=== PATIENT | male | born 1950 | race Caucasian/White ===

== ENCOUNTER → 2020-09-26 | Outpatient (CLI) | payer MEDICARE ==
[~2020-09-26] MED LIST: ASPIRIN E.C. 8181 MG PO; GALZIN25 MG PO; LASIX 20MG TABL20 MG PO; LIPITOR20 MG PO; MAGNESIUM ELEME30 MG PO; MEDROL 4MG DOSPA4 MG PO; MERIBIN5 MG PO; NORCO 325 MG-101 TAB PO; OMEGA-3 1000 MG1 CAP PO; PRESERVISION1 SGL PO; VITAMIN B COMPL1 SGL PO; VITAMIN D 400400 IU PO; VITAMIN D31000 I1 PO; VITAMINC1000TA PO; ZEBETA 5MG5 MG PO
== END ==
LOC: COL.RAD 12:53
DX: I25.10 Atherosclerotic heart disease of native coronary artery without angina pectoris (principal)
CPT/HCPCS: Q9967

== ENCOUNTER 2020-09-29 10:54 | Observation (INO) | payer MEDICARE ==
[2020-09-29] VITALS (13 sets, daily range): BP systolic 115–171; BP diastolic 72–98; PULSE 54–78; TEMP 97.7–98
[~2020-09-29] VITALS: Ht 185.4 cm; Wt 122.7 kg
[2020-09-29 11:50] LABS: BASO # 0.1 (0.0-0.2); BASO % 0.9 % (0.0-2.0); EOS # 0.1 (0.0-0.7); EOS % 1.9 % (0-4.0); GRAN # 4.1 (1.4-6.5); GRAN % 58.3 % (42.2-75.2); HEMATOCRIT 45.6 % (42.0-52.0); HEMOGLOBIN 15.7 g/dl (13.5-18.0); LYMPH # 2.1 (1.2-3.4); MEAN CELL VOLUME 94 fl (80.0-100.0); MEAN CORPUSCULAR HEMOGLOBIN 32 pg (27.0-31.0); MEAN CORPUSCULAR HGB CONC 34 g/dl (33.0-37.0); MONO # 0.6 (0.1-0.6); MONO % 8.6 % (1.7-9.3); PLATELET COUNT 287 K/mm3 (130-400); RED BLOOD COUNT 4.87 M/mm3 (4.20-5.60); REDCELL DISTRIBUTION WIDTH-CV 11.9 % (11.5-14.5)
[2020-09-29 11:58] LABS: ALANINE AMINOTRANSFERASE 24 U/L (4-49); ALBUMIN 4.8 gm/dL (3.5-5.0); ALKALINE PHOSPHATASE 65 U/L (50-136); ANION GAP 11 mmol/L (7-16); AST,SGOT 29 U/L (15-37); BILIRUBIN,TOTAL 0.6 mg/dL (0.0-1.0); BLOOD UREA NITROGEN 15 mg/dL (9-20); CALCIUM 9.6 mg/dL (8.4-10.2); CARBON DIOXIDE 24 mmol/L (22-30); CHLORIDE 104 mmol/L (98-107); CREATININE, serum 0.85 (0.66-1.25); GLUCOSE 125 mg/dL (74-106); POTASSIUM 4.4 mmol/L (3.4-5.0); SODIUM 138 mmol/L (137-145); TOTAL PROTEIN 7.7 gm/dL (6.4-8.2)
[2020-09-29 12:12] LABS: TROPONIN-I < 0.012 ng/mL (0.000-0.035)
[2020-09-29] MEDS ORDERED: ZEBETA 5MG5 MG PO (14:04)
--- NOTE | 2020-09-29 14:45 | NUR ---
Pt arrived to medical unit room 317 at this time. Sitting in room on bench w/friend at bedside. Oriented pt to room and completed admission assessment and med rec. Denies chest pain/SOA at this time. Lungs CTA. Heart RRR. A&Ox4. Continuing to monitor.
[2020-09-29] MEDS ORDERED: OMEGA-3 1000 MG1 CAP PO (14:50)
[2020-09-29] MEDS ORDERED: MAGNESIUM ELEME30 MG PO (14:51)
[2020-09-29] MEDS ORDERED: NORCO 325 MG-101 TAB PO (14:52)
[2020-09-29] MEDS ORDERED: VITAMIN D 400400 IU PO (14:53)
[2020-09-29] MEDS ORDERED: MERIBIN5 MG PO (14:53)
[2020-09-29] MEDS ORDERED: PRESERVISION1 SGL PO (14:54)
[2020-09-29] MEDS ORDERED: VITAMIN D31000 I1 PO (14:54)
[2020-09-29] MEDS ORDERED: VITAMIN B COMPL1 SGL PO (14:55)
[2020-09-29] MEDS ORDERED: VITAMINC1000TA PO (14:56)
[2020-09-29] MEDS ORDERED: GALZIN25 MG PO (14:56)
--- NOTE | 2020-09-29 16:38 | NUR ---
Pt down for heart cath at this time.
--- NOTE | 2020-09-29 18:00 | NUR ---
Pt back in room following heart cath. Post op vitals started. Right radial site w/o s/s complication.
--- NOTE | 2020-09-29 20:45 | NUR ---
Attempted to take out of right radial heart cath site around 1945, but started bleeding. Air replaced. Able to start taking air out at 2030. All air out at this time, and bandaide in place. Arm board in place for protection. Alert and oriented x 4, and able to make needs known. Reports back ache and headache. Called [employer] and new order for [place]. Given at this time. Peripheral INT to left AC. Site without redness, warmth, swelling, and pain. Denies SOB and dyspnea. LS CTA. Respirations even and unlabored. HRR. Capillary refill less than 3 seconds. Non-tenting skin turgor. BSAx4. Abdomen soft and non-tender. 1+ edema BLE. Voices no questions, needs, or concerns at this time. Resting in bed with call light within reach.
--- NOTE | 2020-09-29 21:40 | NUR ---
Patient continueing to have pain. Given 2nd dose of [place] per orders at this time.
[2020-09-30 00:08] VITALS: BP 116/63; PULSE 62; TEMP 97.2
[2020-09-30 05:00] VITALS: BP 143/70; PULSE 57; TEMP 97.5
--- NOTE | 2020-09-30 05:44 | NUR ---
Patient has been resting in bed with call light within reach. Denies having pain and discomfort at this time. Voices no questions, needs, or concerns at this time.
[2020-09-30] MEDS ORDERED: ASPIRIN E.C. 8181 MG PO (07:53)
[2020-09-30] MEDS ORDERED: LIPITOR20 MG PO (07:53)
[2020-09-30] MEDS ORDERED: LASIX 20MG TABL20 MG PO (07:54)
[2020-09-30 08:09] VITALS: BP 154/73; PULSE 63; TEMP 97.7
--- NOTE | 2020-09-30 09:06 | NUR ---
Assessment complete. Patient awake in bed this morning. States he feels just fine. No complaints of pain or discomfort at this time. Radial site is CD&I with a bandaid to cover, no bleeding or drainage present, wrist board removed for comfort, patient stated he would remain conscious of that area while moving around. IV site CDI. No other needs were expressed at this time. Will continue to monitor. Call light is in reach.
[2020-09-30] MEDS ORDERED: MEDROL 4MG DOSPA4 MG PO (10:07)
--- NOTE | 2020-09-30 12:00 | NUR ---
Patient left the floor at this time. Discharge instructions and folow up appointments were discussed. No further questions or concerns were expressed. Patient walked out per his request, pt did well.
== END 2020-09-30 12:00 | disposition home or self-care (01) ==
LOC: COL.ER 10:54 → MEDICAL 12:24
PROVIDERS: Emergency Medicine; ADMIT Student in an Organized Health Care Education/Training Program
DX: I25.10 Atherosclerotic heart disease of native coronary artery without angina pectoris (principal); J44.9 Chronic obstructive pulmonary disease, unspecified; I77.810 Thoracic aortic ectasia; I10 Essential (primary) hypertension; I42.0 Dilated cardiomyopathy; I35.1 Nonrheumatic aortic (valve) insufficiency; G47.33 Obstructive sleep apnea (adult) (pediatric); G89.29 Other chronic pain; M54.9 Dorsalgia, unspecified; R73.03 Prediabetes; Z86.73 Personal history of transient ischemic attack (TIA), and cerebral infarction without residual deficits; Z79.899 Other long term (current) drug therapy; E66.9 Obesity, unspecified
CPT/HCPCS: 99239; C1887; G0378; J1644; J2250; J3010; Q9967

== ENCOUNTER → 2020-10-12 | Outpatient (CLI) | payer MEDICARE | LOC: COL.RAD 10-10 13:45 | DX: R06.02 Shortness of breath (principal) ==

== ENCOUNTER 2020-11-01 13:03 | Outpatient (RCR) | payer MEDICARE, MEDICAID | END 2021-01-30 | disposition home or self-care (01) | LOC: WSST | DX: R13.10 Dysphagia, unspecified (principal) ==

== ENCOUNTER 2021-04-05 13:30 | Outpatient (RCR) | payer MEDICARE, MEDICAID | END 2021-05-24 | disposition home or self-care (01) | LOC: WSPT | DX: M46.46 Discitis, unspecified, lumbar region (principal); M43.8X9 Other specified deforming dorsopathies, site unspecified ==

== ENCOUNTER → 2021-07-16 | Outpatient (CLI) | payer MEDICARE, MEDICAID | LOC: COL.RAD 11:27 | DX: Z01.812 Encounter for preprocedural laboratory examination (principal); K21.00 Gastro-esophageal reflux disease with esophagitis, without bleeding; I70.0 Atherosclerosis of aorta; M47.816 Spondylosis without myelopathy or radiculopathy, lumbar region; K57.30 Diverticulosis of large intestine without perforation or abscess without bleeding; Z86.010 Personal history of colon polyps | CPT/HCPCS: Q9967 ==

== ENCOUNTER → 2021-07-18 | Outpatient (CLI) | payer MEDICARE, MEDICAID | LOC: COL.RAD 07:52 | DX: K21.9 Gastro-esophageal reflux disease without esophagitis (principal) | CPT/HCPCS: A9541 ==

== ENCOUNTER 2022-07-24 15:05 | Outpatient (RCR) | payer MEDICARE, MEDICAID | END 2022-08-13 | disposition home or self-care (01) | LOC: COL.CR | DX: Z48.812 Encounter for surgical aftercare following surgery on the circulatory system (principal); Z98.61 Coronary angioplasty status ==

== ENCOUNTER → 2022-10-14 | Outpatient (CLI) | payer MEDICARE, MEDICAID ==
[~2022-10-14] MED LIST changes: +TESSALON PERLE200 MG PO
== END ==
LOC: DIA.ED 08-28 07:52
DX: E11.40 Type 2 diabetes mellitus with diabetic neuropathy, unspecified (principal); E11.59 Type 2 diabetes mellitus with other circulatory complications; Z79.84 Long term (current) use of oral hypoglycemic drugs; I10 Essential (primary) hypertension

== ENCOUNTER 2023-04-14 14:04 | Emergency (ER) | payer MEDICARE, MEDICAID ==
[~2023-04-14] VITALS: Ht 185.4 cm; Wt 118.2 kg
[2023-04-14 14:21] VITALS: TEMP 98.5
[2023-04-14 15:05] LABS: BASO # 0.1 K/mm3 (0.0-0.2); BASO % 0.7 % (0.0-2.0); EOS # 0.3 K/mm3 (0.0-0.7); EOS % 2.3 % (0.0-4.0); GRAN # 7.8 K/mm3 (1.4-6.5); GRAN % 70.1 % (42.2-75.2); HEMATOCRIT 42.7 % (42.0-52.0); HEMOGLOBIN 14.8 g/dl (13.5-18.0); LYMPH # 2.1 K/mm3 (1.2-3.4); LYMPH % 18.6 % (20.0-51.0); MEAN CELL VOLUME 93 fl (80.0-100.0); MEAN CORPUSCULAR HEMOGLOBIN 32 pg (27-31); MEAN CORPUSCULAR HGB CONC 35 g/dl (33.0-37.0); MEAN PLATELET VOLUME 9.2 fl (7.4-10.4); MONO # 0.9 K/mm3 (0.1-0.6); MONO % 7.8 % (1.7-9.3); PLATELET COUNT 265 K/mm3 (130-400); RED BLOOD COUNT 4.58 M/mm3 (4.20-5.60); REDCELL DISTRIBUTION WIDTH-CV 11.9 % (11.5-14.5)
[2023-04-14 15:25] LABS: ALANINE AMINOTRANSFERASE 21 U/L (0-55); ALKALINE PHOSPHATASE 53 U/L (40-150); ANION GAP 9 mmol/L (7-16); AST,SGOT 20 U/L (5-34); BILIRUBIN,TOTAL 0.6 mg/dL (0.2-1.2); BLOOD UREA NITROGEN 18 mg/dL (8-26); CALCIUM 9.1 mg/dL (8.4-10.2); CARBON DIOXIDE 23 mmol/L (23-31); CHLORIDE 107 mmol/L (98-107); GLUCOSE 124 mg/dL (70-99); POTASSIUM 4.2 mmol/L (3.5-4.5); SODIUM 139 mmol/L (136-145)
[2023-04-14 15:34] LABS: TROPONIN-I < 0.010 ng/mL (0.00-0.033)
[2023-04-14 16:10] VITALS: BP 145/75; PULSE 67
== END 2023-04-14 16:13 | disposition home or self-care (01) ==
LOC: COL.ER 14:04
PROVIDERS: Personal Emergency Response Attendant
DX: B34.9 Viral infection, unspecified (principal); R05.9 Cough, unspecified; R07.89 Other chest pain; Z20.822 Contact with and (suspected) exposure to COVID-19; Z95.5 Presence of coronary angioplasty implant and graft

== ENCOUNTER 2023-04-23 13:53 | Outpatient (RCR) | payer MEDICARE, MEDICAID | END 2023-05-13 | disposition home or self-care (01) | LOC: WSST | DX: R13.14 Dysphagia, pharyngoesophageal phase (principal) ==

== ENCOUNTER → 2023-09-25 | Outpatient (CLI) | payer MEDICARE, MEDICAID ==
[~2023-09-25] VITALS: Ht 185.4 cm; Wt 124.0 kg
[~2023-09-25] MED LIST changes: +ASPIRIN 81M81 MG/TA2 PO; +BROMELAIN; +CRESTOR20 MG PO; +CURCUMIN95% PO; +GLUCOPHAGE500 MG/TAB PO; +MAGNESIUM250 M1 PO; +OSTEO-BI-FLEX 21 TAB PO; +PHARMASSURE ZIN50 MG PO; +PLAVIX 75MG TAB75 MG PO; +THEO-24400 MG PO
--- NOTE | 2023-09-25 15:37 | NUR ---
procedure cancelled by dr [email or web address].
== END ==
LOC: COL.RAD 13:30
DX: E04.2 Nontoxic multinodular goiter (principal)

== ENCOUNTER 2023-11-04 16:30 | Emergency (ER) | payer MEDICARE, MEDICAID ==
[~2023-11-04] VITALS: Ht 182.9 cm; Wt 124.1 kg
[2023-11-04 16:38] VITALS: TEMP 98.7
[2023-11-04] MEDS ORDERED: oxyCODONE/Acetaminophen 5-325 MG TAB PO ONE (17:15)
[2023-11-04] MEDS ORDERED: NORCO 325 MG-51 TAB PO (18:07)
[2023-11-04 18:41] VITALS: BP 142/91; PULSE 64
== END 2023-11-04 18:41 | disposition home or self-care (01) ==
LOC: COL.ER 16:30
DX: S46.911A Strain of unspecified muscle, fascia and tendon at shoulder and upper arm level, right arm, initial encounter (principal); X50.0XXA Overexertion from strenuous movement or load, initial encounter